=== PATIENT | male | born 1935 | race Caucasian/White ===

== ENCOUNTER 2016-11-19 11:46 | Inpatient (IN) | payer MEDICARE, BC ==
[2016-11-19 12:13] LABS: AUTOMATED BASOPHIL 0.9 % (0-2); AUTOMATED EOSINOPHIL 1.1 % (0-5); AUTOMATED LYMPH 18.6 % (17-44); AUTOMATED MONOCYTE 8.8 % (3-10); AUTOMATED NEUTROPHIL 70.6 % (45-76); MPV 7.8 fL (7.4-10.4)
[2016-11-19 12:33] LABS: PARTIAL THROMB. TIME 24.7 SEC (22-35)
[2016-11-19 12:34] LABS: BLOOD UREA NITROGEN 17 MG/DL (9-20); CALCIUM 8.7 MG/DL (8.4-10.2); CALCULATED OSMOLALITY 273 MOs/Kg (270-290); CHLORIDE 100 mEq/L (98-107); GLUCOSE 128 MG/DL (70-99); SODIUM LEVEL 140 mEq/L (137-146); TOTAL PROTEIN 7.4 G/DL (6.3-8.2)
[2016-11-19 12:56] LABS: CPK TOTAL WITH POSSIBLE MB 93 IU/L (55-170)
--- NOTE | 2016-11-19 13:08 | DIRPT ---
CLINICAL DATA: Acute onset left-sided facial droop EXAM: CT HEAD WITHOUT CONTRAST TECHNIQUE: Contiguous axial images were obtained from the base of the skull through the vertex without intravenous contrast. COMPARISON: None. FINDINGS: There is mild diffuse atrophy. There is no intracranial mass, hemorrhage, extra-axial fluid collection, or midline shift. There is a focal area of decreased attenuation at the baron - white junction of the right frontal -parietal junction, suspicious for recent/acute infarct in this area. Elsewhere, there is mild small vessel disease in the centra semiovale bilaterally. Bony calvarium appears intact. Mastoid air cells are clear. There is leftward deviation the nasal septum. There are no intraorbital lesions. IMPRESSION: Acute appearing infarct at the baron -white junction, located at the right frontal -parietal lobe junction, best seen on axial slices 21--24, series 2. Elsewhere there is mild atrophy with mild periventricular small vessel disease. No mass effect or hemorrhage. There is leftward deviation of the nasal septum. Electronically Signed By: Oracio De La Fuente III, M.D. On: 11/19/2016 13:06
--- NOTE | 2016-11-19 14:35 | DIRPT ---
CLINICAL DATA: Weakness, numbness LEFT side of face since this morning, swollen gland at LEFT eye EXAM: CHEST 2 VIEW COMPARISON: None FINDINGS: Light technique limits lateral view. Upper normal heart size. Atherosclerotic calcification aorta. Mediastinal contours and pulmonary vascularity normal. Lungs appear mildly hyperaerated with streaky atelectasis at RIGHT base. No definite acute infiltrate, pleural effusion, or pneumothorax. Bones demineralized. IMPRESSION: RIGHT basilar atelectasis with questionable underlying emphysematous changes. Electronically Signed By: Ramiro Tuttle M.D. On: 11/19/2016 14:32
--- NOTE | 2016-11-19 14:41 | EDPRACDOC ---
- Treatment Prior to ED Arrival Reported Medications/Treatment MAINTENANCE TECH Medications MAINTENANCE TECH (Medication/ PLAVIX [id number] Dose/Time) - General Information Chief Complaint: Neuro Symptoms/Deficits Stated Complaint: ? STROKE SYMPTOMS WOKE UP THIS AM Time Seen by Provider: 11/19/16 13:36 Mode of Arrival:: Car Home Medications: Home Medications Atorvastatin Calcium [Lipitor] 10 mg PO QHS 11/19/16 Clopidogrel Bisulfate [Plavix] 75 mg PO DAILY 11/19/16 Doxazosin Mesylate 8 mg PO DAILY 11/19/16 Finasteride [Proscar] 5 mg PO DAILY 11/19/16 Gabapentin 600 mg PO QHS 11/19/16 Glimepiride 2 mg PO DAILY 11/19/16 Hydrochlorothiazide 25 mg PO DAILY 11/19/16 Quinapril HCl [Accupril] 40 mg PO BID 11/19/16 Allergies/Adverse Reactions: Allergies Allergy/AdvReac Type Severity Reaction Status Date / Time No Known Allergies Allergy Verified 11/19/16 11:56 - History of Present Illness Exact Onset of Symptoms: Upon Awakening Date Symptoms Started: 11/19/16 Time Symptoms Started: 05:00 Symptoms Started: Reports: While asleep Symptoms: Reports: Facial droop (LEFT), Trouble swallowing Symptoms Description: Constant Weakness: Left: Face Relevant History of: Reports: CVA (WITH RESOLVED LEFT SIDED WEAKNESS.) ED Past Medical History - History Reviewed Yes Nurses notes reviewed and agree except as marked - Patient Medical History Neurological History: Reports: Cerebrovascular Accident Cardiac History: Reports: Hypertension, Hypercholesterolemia GI/ History: Reports: Gastroesophageal Reflux Musculoskeletal History: Reports: Arthritis Psychological History: Denies: Depression Systemic History: Denies: Cancer Surgical History: Reports: Appendectomy - Social Medical History Smoking Status: Former smoker Lives With: Spouse Lives In: Home EDM Review of Systems - Review of Systems ROS Negative Except as Marked: Yes All systems reviewed and were negative except as marked Respiratory: negative: Shortness of Breath Cardiovascular: negative: Chest Pain Gastrointestinal: negative: Nausea, Pain, Vomiting Neurological: Other (LEFT FACIAL DROOP SINCE AWAKENING THIS AM.) - Physical Exam Constitutional: Alert Oriented to: Time, Person, Place Last recorded Vital Signs: Last Vital Signs Temp 97.6 F 11/19/16 11:49 Pulse 74 11/19/16 13:46 Resp 18 11/19/16 13:46 BP 116/64 11/19/16 13:46 Pulse Ox 96 11/19/16 13:46 Oxygen Pulse Oxygen Saturation 96 O2 Device Room Air Oxygen Flow Rate Fraction of Inspired Oxygen ( FIO2) - HEENT Head: negative: Deformity, Laceration Eye Exam: negative: Conjunctival Injection, Pale Conjunctiva Oropharynx: negative: Membranes Dry Nose: negative: Congestion, Discharge Neck: negative: Limited ROM - Respiratory/Cardiovascular Respiratory: Normal - CTA. negative: Accessory Muscle Use, Diminished, Tachypnea Cardiovascular: negative: Bradycardia, Tachycardia, Irregular - GI Auscultation: Normal Palpation: Normal Tenderness: Non tender - Musculoskeletal Extremities: Pedal Pulse (PALPABLE), Radial Pulse (PALPABLE). negative: Calf Tenderness, Pedal Edema - Integumentary Skin: Warm, Dry. negative: Rash - Neurologic Memory Impaired: Normal Mood Description: Anxious, Appropriate Thought: Coherent Perception: Normal NIH Stroke Scale Initial Evaluation Level of Consciousness: Alert LOC- Question: Answers Both Correctly LOC Commands: Both Task Correctly Best Gaze: Normal Visual: No Visual Loss Facial Palsy: Partial Paralysis Motor Arm LEFT: No Drift Motor Arm RIGHT: No Drift Motor Leg LEFT: No Drift Motor Leg RIGHT: No Drift Limb Ataxia: Absent Sensory: Normal Best Language: No Aphasia Dysarthria: Normal Extinction and Inattention: No Abnormality (Neglect) Score: 2out of42 - Action Has patient received an Antithrombotic in the last 24hrs?: Yes Was an Antithrombotic given in the ED?: No Is patient a candidate for lytic therapy?: No - Results 11/19/16 11:58 11/19/16 11:58 WBC 8.1 xk/uL (3.8-10.8) 11/19/16 11:58 RBC 5.37 xM/uL (4.70-6.10) 11/19/16 11:58 Hgb 15.9 g/dL (14.0-18.0) 11/19/16 11:58 Hct 46.2 % (42-52) 11/19/16 11:58 MCV 86 fL (80-94) 11/19/16 11:58 MCH 29.6 pg (27-32) 11/19/16 11:58 MCHC 34.3 g/dl (33-36) 11/19/16 11:58 RDW 13.6 % (11.5-14.5) 11/19/16 11:58 Plt Count 168 xk/uL (130-400) 11/19/16 11:58 MPV 7.8 fL (7.4-10.4) 11/19/16 11:58 Neut % (Auto) 70.6 % (45-76) 11/19/16 11:58 Lymph % (Auto) 18.6 % (17-44) 11/19/16 11:58 Reynolds % (Auto) 8.8 % (3-10) 11/19/16 11:58 Eos % (Auto) 1.1 % (0-5) 11/19/16 11:58 Baso % (Auto) 0.9 % (0-2) 11/19/16 11:58 Absolute Neuts (auto) 5.67 xk/uL (1.7-8.2) 11/19/16 11:58 Absolute Lymphs (auto) 1.46 xk/uL (0.65-4.75) 11/19/16 11:58 PT 10.7 SEC (9.2-11.2) 11/19/16 11:58 INR 1.0 11/19/16 11:58 APTT 24.7 SEC (22-35) 11/19/16 11:58 Sodium 140 mEq/L (137-146) 11/19/16 11:58 Potassium 3.8 mEq/L (3.5-5.1) 11/19/16 11:58 Chloride 100 mEq/L (98-107) 11/19/16 11:58 Carbon Dioxide 29 mMOL/L (22-33) 11/19/16 11:58 Anion Gap 15 mEq/L (8-16) 11/19/16 11:58 BUN 17 MG/DL (9-20) 11/19/16 11:58 Creatinine 1.10 MG/DL (0.66-1.25) 11/19/16 11:58 Estimated GFR (MDRD) > 60 mL/min (>=60) 11/19/16 11:58 Glucose 128 MG/DL (70-99) H 11/19/16 11:58 Calculated Osmolality 273 MOs/Kg (270-290) 11/19/16 11:58 Calcium 8.7 MG/DL (8.4-10.2) 11/19/16 11:58 Total Bilirubin 0.6 MG/DL (0.2-1.3) 11/19/16 11:58 AST 39 IU/L (17-59) 11/19/16 11:58 ALT 44 IU/L (21-72) 11/19/16 11:58 Alkaline Phosphatase 95 IU/L (50-160) 11/19/16 11:58 Creatine Kinase 93 IU/L (55-170) 11/19/16 11:58 Troponin I < 0.01 ng/mL (<.04) 11/19/16 11:58 Total Protein 7.4 G/DL (6.3-8.2) 11/19/16 11:58 Albumin 4.0 G/DL (3.5-5.0) 11/19/16 11:58 Lab Results 11/19/16 11/19/16 11/19/16 11:58 11:58 11:58 WBC 8.1 RBC 5.37 Hgb 15.9 Hct 46.2 MCV 86 MCH 29.6 MCHC 34.3 RDW 13.6 Plt Count 168 MPV 7.8 Neut % (Auto) 70.6 Lymph % (Auto) 18.6 Reynolds % (Auto) 8.8 Eos % (Auto) 1.1 Baso % (Auto) 0.9 Absolute Neuts (auto) 5.67 Absolute Lymphs (auto) 1.46 PT 10.7 INR 1.0 APTT 24.7 Sodium 140 Potassium 3.8 Chloride 100 Carbon Dioxide 29 Anion Gap 15 BUN 17 Creatinine 1.10 Estimated GFR (MDRD) > 60 Glucose 128 H Calculated Osmolality 273 Calcium 8.7 Total Bilirubin 0.6 AST 39 ALT 44 Alkaline Phosphatase 95 Creatine Kinase 93 Troponin I < 0.01 Total Protein 7.4 Albumin 4.0 - EKG EKG #1 EKG Time: 11:57 -: Yes EKG interpreted by me Rate: bpm: 79 [place]: Normal Rhythm: NSR, PACs Block: None Hypertrophy: None ST: Normal - Departure Yes I personally saw and evaluated the patient. Disposition: Admit IP To This Hospital Condition: Stable Final Diagnosis: CVA (cerebral vascular accident) Decision to Admit Time: 15:30 Decision to admit date: 11/19/16 Decision to admit: from ED
[2016-11-19 15:34] LABS: CPK TOTAL WITH POSSIBLE MB 82 IU/L (55-170)
[2016-11-19] MEDS ORDERED: ACETAMINOPHEN 325 MG SUPP PR PRN (15:56)
[2016-11-19] MEDS ORDERED: GLUCOSE (ORAL GEL) 15 GM TUBE PO PRN (15:56)
[2016-11-19] MEDS ORDERED: ONDANSETRON HCL 4 MG/2 ML VIAL IV PRN (15:56)
[2016-11-19] MEDS ORDERED: OXYCODONE HCL 5 MG TABLET PO PRN (15:56)
[2016-11-19] MEDS ORDERED: BENZONATATE 100 MG PERLES PO PRN (15:56)
[2016-11-19] MEDS ORDERED: SENNA CONCENTRATE TAB PO PRN (15:56)
[2016-11-19] MEDS ORDERED: ACETAMINOPHEN 325 MG/TAB TABLET PO PRN (15:56)
[2016-11-19] MEDS ORDERED: PROMETHAZINE 25 MG/ML VIAL IV PRN (15:56)
[2016-11-19] MEDS ORDERED: Albuterol/Ipratropium Neb 3 ML NEB NEB PRN (15:56)
[2016-11-19] MEDS ORDERED: BISACODYL 10 MG SUPP PR PRN (15:56)
[2016-11-19] MEDS ORDERED: GLUCAGON 1 MG VIAL SQ PRN (15:56)
[2016-11-19] MEDS ORDERED: DEXTROSE 25 GM/50 ML PFS IV PRN (15:56)
[2016-11-19] MEDS ORDERED: TUSSIONEX 5 ML ORAL SYRINGE PO PRN (15:56)
--- NOTE | 2016-11-19 16:08 | HISTPHYS ---
- Chief Complaint Left facial weakness starting at 5:30 a.m. this morning with slurred speech - History of Present Illness Patient very pleasant 81-year-old white male who was brought in today at the insistence of his spouse with abrupt onset of slurred speech and left facial weakness around 5:30 a.m.. He subsequently went to [employer] and got a hair cut until his finally convinced him to come into the emergency room for further evaluation. He tells me he had a previous stroke affecting his left upper extremity 8 years ago near the time he was diagnosed with diabetes mellitus. 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 He states that since that time he has been told he cannot have an MRI due to the placement of the filter. Upon arrival here CT of the head showed evidence of an acute right frontoparietal stroke. - Medical History Cardiac History: Reports: Hypertension, Hypercholesterolemia GI/ History: Reports: Gastroesophageal Reflux Musculoskeletal History: Reports: Arthritis Systemic History: Denies: Cancer Neurological History: Reports: Cerebrovascular Accident Psychological History: Denies: Depression - Surgical History Reports: Appendectomy - Medictions/Allergies Allergies No Known Allergies Allergy (Verified 11/19/16 11:56) Current Medication List: Reviewed Home Medications Atorvastatin Calcium [Lipitor] 10 mg PO QHS 11/19/16 Clopidogrel Bisulfate [Plavix] 75 mg PO DAILY 11/19/16 Doxazosin Mesylate 8 mg PO DAILY 11/19/16 Finasteride [Proscar] 5 mg PO DAILY 11/19/16 Gabapentin 600 mg PO QHS 11/19/16 Glimepiride 2 mg PO DAILY 11/19/16 Hydrochlorothiazide 25 mg PO DAILY 11/19/16 Quinapril HCl [Accupril] 40 mg PO BID 11/19/16 - Family History Reports: Hypertension - Social History Travel Outside of [place] in the Last 3 Months?: No Lives: with Spouse Smoking Status: Former smoker Social History: Denies: Alcohol Use, Substance Use Disorder - Review of Systems Constitutional: No Symptoms Reported (No Fever, chills, wt loss/gain, diaphoresis,fatigue/malaise.) Eyes: Other (Left facial weakness with drooping left eyelid and flattening of left nasolabial fold) Ears: No Symptoms Reported (No ear pain or discharge) Nose: No Symptoms Reported (No nasal discharge/congestion or bleeding) Mouth: Other (Left facial weakness with drooping left eyelid and flattening of left nasolabial fold) Throat/Neck: No Symptoms Reported (No throat pain or swelling.No oropharyngeal lesions or erythema.) Respiratory: No Symptoms Reported (No cough, wheezing, or shortness of breath.) Cardiovascular: No Symptoms Reported (No chest pain or palpitations.) Gastrointestinal: No Symptoms Reported (No abdominal pain, nausea, vomiting, diarrhea, constipation, or bloody stool.) Genitourinary: No Symptoms Reported (No dysuria or hematuria.) Neurological: Other (Left facial weakness and 8 years ago previous stroke giving him transient left upper extremity weakness) Musculoskeletal:: No Symptoms Reported Integumentary: No Symptoms Reported (no rashes or lesions) Allergic/Immunologic: No Symptoms Reported (no rashes or lesions) Hematologic: No Symptoms Reported (No chronic anemia, bleeding, or easy bruising.), Other (Lymphatics- no lymph node swelling or pain.) Endocrine: Diabetes Psychiatric: No Symptoms Reported (Fully oriented, with normal and appropriate affect.) - Physical Exam Vital Signs: Initial Vitals Temperature 97.6 F 11/19/16 11:49 Pulse Rate 83 11/19/16 11:49 Respiratory Rate 20 11/19/16 11:49 Blood Pressure 140/70 11/19/16 11:49 Pulse Oxygen Saturation 95 11/19/16 11:49 Constitutional: No apparent distress, Alert (Awake, Fully oriented. Normal and appropriate affect. Well nourished.) Oriented to: Time, Person, Place - HEENT Head: Other (Left facial weakness with drooping left eyelid and flattening of left nasolabial fold) Eye: Other (Left facial weakness with drooping left eyelid and flattening of left nasolabial fold) Oropharynx: Normal (Pharynx: Moist without exudate,Gums-no swelling, No oropharyngeal lesions or erythema, Mucous membranes are dry.) ENT EAC: Other (Left facial weakness with drooping left eyelid and flattening of left nasolabial fold). negative: Blood, Foreign Body, Swelling TMJ: Normal Nose: No Symptoms Reported (septum midline, Nares patent, without discharge or bleeding.) Respiratory: Normal - CTA (Clear to auscultation bilaterally. No wheezing, rales , rhonchi. Chest wall movements are symmetric. No use of accessory muscles to breathe.) Cardiovascular: Normal (RRR , Normal S1, S2. No murmurs, rubs, or gallops. PMI non-displaced. Carotids: no carotid bruits. No bradycardia or tachycardia. DP pulses 2+ bilaterally.) - GI Auscultation: Normal (normal active sounds) Palpation: Normal (Soft,non distended,nontender. No hepatosplenomegaly.) Tenderness: Non tender (No rebound or guarding) Tejada's Sign: Negative - Musculoskeletal Back: Normal (Non-Tender). negative: Abrasion, Ecchymosis, Laceration Extremities: Normal (Normal tone, DP pulses 2+ bilaterally, No cyanosis or edema bilaterally, FROM bilaterally.) Spine: non-tender, normal alignment, limited range of motion - Integumentary Skin: Normal (Clean, dry, and intact. No rashes. No lesions.) Lymphatics: Normal (No cervical lymphadenopathy. No supraclavicular lymphadenopathy.) - Neurologic Memory Impaired: Normal Motor Function: Abnormal (Left facial weakness with drooping left eyelid and flattening of left nasolabial fold but lower extremities of equal strength approximately 4/5 flexion extension bilaterally) Cranial Nerve: Other (Left facial weakness with drooping left eyelid and flattening of left nasolabial fold and dysarthria) Cerebellar: Past-Pointing (Very mild past pointing left upper extremity). negative: Tremor Mood Description: Normal (Fully oriented. Normal and appropriate affect.) Thought: Coherent Perception: Normal (Normal and appropriate affect.) - Focused CV Perfusion Exam Vital Signs: Last Vital Signs Temp 97.6 F 11/19/16 11:49 Pulse 66 11/19/16 15:02 Resp 18 11/19/16 15:02 BP 125/71 11/19/16 15:02 Pulse Ox 95 11/19/16 15:02 - Lab Results 11/19/16 11:58 11/19/16 11:58 Laboratory Results - last 24 hr 11/19/16 11/19/16 11/19/16 11:58 11:58 11:58 WBC 8.1 RBC 5.37 Hgb 15.9 Hct 46.2 MCV 86 MCH 29.6 MCHC 34.3 RDW 13.6 Plt Count 168 MPV 7.8 Neut % (Auto) 70.6 Lymph % (Auto) 18.6 [place] % (Auto) 8.8 Eos % (Auto) 1.1 Baso % (Auto) 0.9 Absolute Neuts (auto) 5.67 Absolute Lymphs (auto) 1.46 PT 10.7 INR 1.0 APTT 24.7 Sodium 140 Potassium 3.8 Chloride 100 Carbon Dioxide 29 Anion Gap 15 BUN 17 Creatinine 1.10 Estimated GFR (MDRD) > 60 Glucose 128 H POC Capillary Glucose Calculated Osmolality 273 Calcium 8.7 Total Bilirubin 0.6 AST 39 ALT 44 Alkaline Phosphatase 95 Creatine Kinase 93 Troponin I < 0.01 Total Protein 7.4 Albumin 4.0 11/19/16 11/19/16 14:48 17:25 WBC RBC Hgb Hct MCV MCH MCHC RDW Plt Count MPV Neut % (Auto) Lymph % (Auto) [place] % (Auto) Eos % (Auto) Baso % (Auto) Absolute Neuts (auto) Absolute Lymphs (auto) PT INR APTT Sodium Potassium Chloride Carbon Dioxide Anion Gap BUN Creatinine Estimated GFR (MDRD) Glucose POC Capillary Glucose 116 H Calculated Osmolality Calcium Total Bilirubin AST ALT Alkaline Phosphatase Creatine Kinase 82 Troponin I < 0.01 Total Protein Albumin - Diagnostic Findings CT of the head shows the following: IMPRESSION: Acute appearing infarct at the baron -white junction, located at the right frontal -parietal lobe junction, best seen on axial slices 21--24, series 2. Elsewhere there is mild atrophy with mild periventricular small vessel disease. No mass effect or hemorrhage. There is leftward deviation of the nasal septum. - Assessment (1) CVA (cerebral vascular accident) I63.9 - CEREBRAL INFARCTION, UNSPECIFIED Acute Present on Admission: Yes Qualifiers: CVA mechanism: thrombosis Precerebral and cerebral artery: middle cerebral artery Laterality of affected vessel: right Qualified Code(s): I63.311 - Cerebral infarction due to thrombosis of right middle cerebral artery Patient taking Plavix Lipitor Cardura and concerned that of all these medications, the Cardura could be contributing to the neurologic event. According to the [place] study February 2000 Journal of the [employer], Doxazosin was associated with more stroke and cardiovascular disease events than chlorthalidone in high risk hypertension. For this reason I will discontinue the Cardura switching to Flomax more specific for urinary tissue for now and close observation blood pressure allowing it to go a little higher. May consider the use of beta wilbert in the future as the blood pressure goes up. Patient already taking aspirin and Plavix and I do not feel that Aggrenox would afford him any more benefit. Routine stroke studies ordered. (2) Diabetes mellitus type II, non insulin dependent E11.9 - TYPE 2 DIABETES MELLITUS WITHOUT COMPLICATIONS Chronic Present on Admission: Yes Sliding scale insulin therapy and previous medications ordered. Claims he was nauseous with the metformin. Glycohemoglobin 6.5 and urine microalbumin is pending at time of dictation. (3) Hypertension I10 - ESSENTIAL (PRIMARY) HYPERTENSION Chronic Present on Admission: Yes Qualifiers: Hypertension type: essential hypertension Qualified Code(s): I10 - Essential (primary) hypertension Allow the blood pressure to creep little higher post CVA. (4) Hypercholesterolemia E78.00 - PURE HYPERCHOLESTEROLEMIA, UNSPECIFIED Chronic Present on Admission: Yes Continue statin. Lipid panel pending. (5) BPH (benign prostatic hyperplasia) N40.0 - BENIGN PROSTATIC HYPERPLASIA WITHOUT LOWER URINRY TRACT SYMP Chronic Present on Admission: Yes Qualifiers: Prostatic enlargement morphology: unspecified morphology Lower urinary tract symptom presence: symptoms present Qualified Code(s): N40.1 - Benign prostatic hyperplasia with lower urinary tract symptoms Switch Cardura to Flomax which is more specific for urinary tissue. Case Care Discussed with: Patient, Nursing Staff, Resource Management Total Time: Critical care time spent 1 hour 22 minutes Critical Care: Yes Code: 291 (292)
[2016-11-19] MEDS: NS/KCl 20 mEq 1,000 ML IV SCH (17:19)
[2016-11-19] MEDS: REGULAR INSULIN 100 UNITS/ML - 3 ML VIAL SQ SCH (17:26)
[2016-11-19] MEDS: ENOXAPARIN 40 MG/0.4 ML PFS SQ SCH (19:06)
[2016-11-19] MEDS: ATORVASTATIN 10 MG TAB PO SCH (19:06)
[2016-11-19] MEDS: GABAPENTIN 300 MG CAP PO SCH (21:28)
[2016-11-19 22:55] LABS: LEUKOCYTES/URINE NEG (NEGATIVE); NITRITE/URINE NEG (NEGATIVE); RBC/URINE 0-2 (0-2); URINE OCCULT BLOOD NEG (NEG/TRACE); WBC/URINE 0-2 (0-2)
[2016-11-19] MEDS ORDERED: Vaccine Screening Complete SCH (23:00)
[2016-11-20 04:56] LABS: AUTOMATED BASOPHIL 0.6 % (0-2); AUTOMATED EOSINOPHIL 2.6 % (0-5); AUTOMATED LYMPH 27.7 % (17-44); AUTOMATED MONOCYTE 11.2 % (3-10); AUTOMATED NEUTROPHIL 57.9 % (45-76); MPV 8.7 fL (7.4-10.4)
[2016-11-20 04:57] VITALS: BMI 29.1
[2016-11-20 05:06] LABS: BLOOD UREA NITROGEN 17 MG/DL (9-20); CALCIUM 8.4 MG/DL (8.4-10.2); CALCULATED OSMOLALITY 267 MOs/Kg (270-290); CHLORIDE 101 mEq/L (98-107); GLUCOSE 77 MG/DL (70-99); LDL (calc.) 63.8 MG/DL (<100); SODIUM LEVEL 138 mEq/L (137-146); VLDL (calc.) 21.2 MG/DL (5-40)
[2016-11-20] MEDS: REGULAR INSULIN 100 UNITS/ML - 3 ML VIAL SQ SCH ×2 (06:24→18:49)
--- NOTE | 2016-11-20 08:36 | DIRPT ---
CLINICAL DATA: 81-year-old male with a history of left-sided facial droop. Cardiovascular risk factors include hypertension, stroke/TIA, diabetes. EXAM: BILATERAL CAROTID DUPLEX ULTRASOUND TECHNIQUE: Benjamin scale imaging, color Doppler and duplex ultrasound were performed of bilateral carotid and vertebral arteries in the neck. COMPARISON: No prior duplex FINDINGS: Criteria: Quantification of carotid stenosis is based on velocity parameters that correlate the residual internal carotid diameter with NASCET-based stenosis levels, using the diameter of the distal internal carotid lumen as the denominator for stenosis measurement. The following velocity measurements were obtained: RIGHT ICA: Systolic 296 cm/sec, Diastolic 51 cm/sec CCA: 134 cm/sec SYSTOLIC ICA/CCA RATIO: 2.2 ECA: 132 cm/sec LEFT ICA: Systolic 145 cm/sec, Diastolic 38 cm/sec CCA: 121 cm/sec SYSTOLIC ICA/CCA RATIO: 1.2 ECA: 330 cm/sec Right Brachial SBP: Not acquired Left Brachial SBP: Not acquired RIGHT CAROTID ARTERY: Atherosclerotic changes of the right common carotid artery. Intermediate waveform maintained. Heterogeneous and partially calcified plaque at the right carotid bifurcation. Intimal thickening. Low resistance waveform maintained in the right ICA. No significant tortuosity. RIGHT VERTEBRAL ARTERY: Antegrade flow with low resistance waveform. LEFT CAROTID ARTERY: Atherosclerotic changes of the left common carotid artery. Intermediate waveform maintained. Heterogeneous and partially calcified plaque of the left carotid bifurcation. Low resistance waveform of the left ICA. No significant tortuosity. LEFT VERTEBRAL ARTERY: Antegrade flow with low resistance waveform. IMPRESSION: Right: Heterogeneous plaque at the carotid bifurcation, with discordant results regarding degree of stenosis by established duplex criteria. Peak velocity suggests 70% - 99% stenosis, with the ICA/ CCA ratio suggesting a lesser degree of stenosis. If establishing a more accurate degree of stenosis is required, cerebral angiogram should be considered, or as a second best test, CTA. Left: Heterogeneous plaque at the carotid bifurcation, with discordant results regarding degree of stenosis by established duplex criteria. Peak velocity suggests 50%-69% stenosis, with the ICA/ CCA ratio suggesting a lesser degree of stenosis. If establishing a more accurate degree of stenosis is required, cerebral angiogram should be considered, or as a second best test, CTA. These results were called by telephone at the time of interpretation on 11/20/2016 at 8:[address] GERALDINE DE LA GARZA MD, who verbally acknowledged these results. Signed, Azael S. Abdi, DO [facility] Electronically Signed By: Azael Abdi D.O. On: 11/20/2016 08:33
[2016-11-20] MEDS ORDERED: QUINAPRIL HCL 40 MG TAB PO SCH (09:00)
--- NOTE | 2016-11-20 09:25 | GENMEDPROG ---
Chief Complaint: Left facial paralysis remains with deviation of tongue but speech is slightly clearer. Notes Reviewed: Yes Events from last night noted and discussed with Clinical Staff Current Medication List: Reviewed DVT Prophylaxis: Yes - Physical Examination Vital Signs and I&O: Last Vital Signs Temp 98.1 F 11/20/16 09:03 Pulse 66 11/20/16 09:03 Resp 18 11/20/16 09:03 BP 132/64 11/20/16 09:03 Pulse Ox 97 11/20/16 09:03 Oxygen Pulse Oxygen Saturation 97 O2 Device Room Air Oxygen Flow Rate Fraction of Inspired Oxygen ( FIO2) Intake & Output 11/17/16 11/18/16 11/19/16 11/20/16 23:59 23:59 23:59 23:59 Intake Total 170 1285 Output Total 1100 Balance 170 185 Patient's weight 96.026 kg 94.665 kg General: Alert, Oriented x3, No acute distress, Well appearing, Well nourished HEENT: Other (Left facial weakness) Neck: Non-tender, Full range of motion, Normal Trachea alignment, Normal inspection (No cervical lymphadenopathy. No supraclavicular lymphadenopathy.), No Masses palpable, Supple Lymphatics: Normal (No cervical lymphadenopathy. No supraclavicular lymphadenopathy.) Respiratory: Normal - CTA (Clear to auscultation bilaterally. No wheezing, rales , rhonchi. Chest wall movements are symmetric. No use of accessory muscles to breathe.) Cardiovascular: Regular rate and rhythm (No bradycardia or tachycardia), Normal S1, No Gallops,Rubs/Murmurs, Normal S2, Good Pedal Pulses (DP pulses 2+ bilaterally) GI: Normal bowel sounds (normal active sounds), Soft (non-distended), Non tender , No hepatospenomegaly, No masses Extremities/Musculoskeletal: Normal pulses (DP pulses 2+ bilaterally) Skin: Warm,Dry and Intact, No rashes, No significant lesion Lab/DI/Studies Reviewed: 11/20/16 04:00 11/20/16 04:00 Laboratory Results - last 24 hr 11/19/16 11/19/16 11/19/16 11:58 11:58 11:58 WBC 8.1 RBC 5.37 Hgb 15.9 Hct 46.2 MCV 86 MCH 29.6 MCHC 34.3 RDW 13.6 Plt Count 168 MPV 7.8 Neut % (Auto) 70.6 Lymph % (Auto) 18.6 [place] % (Auto) 8.8 Eos % (Auto) 1.1 Baso % (Auto) 0.9 Absolute Neuts (auto) 5.67 Absolute Lymphs (auto) 1.46 PT 10.7 INR 1.0 APTT 24.7 Sodium 140 Potassium 3.8 Chloride 100 Carbon Dioxide 29 Anion Gap 15 BUN 17 Creatinine 1.10 Estimated GFR (MDRD) > 60 Glucose 128 H POC Capillary Glucose Hemoglobin A1c Calculated Osmolality 273 Calcium 8.7 Total Bilirubin 0.6 AST 39 ALT 44 Alkaline Phosphatase 95 Creatine Kinase 93 Troponin I < 0.01 Total Protein 7.4 Albumin 4.0 Triglycerides Cholesterol LDL Cholesterol, Calc VLDL Cholesterol, Calc HDL Cholesterol Cholesterol/HDL Ratio TSH Urine Color Urine Clarity Urine pH Ur Specific Adger Urine Protein Urine Glucose (UA) Urine Ketones Urine Occult Blood Urine Nitrite Urine Bilirubin Urine Urobilinogen Ur Leukocyte Esterase Urine RBC Urine WBC Hyaline Casts Urine Mucus 11/19/16 11/19/16 11/19/16 11:58 11:58 14:48 WBC RBC Hgb Hct MCV MCH MCHC RDW Plt Count MPV Neut % (Auto) Lymph % (Auto) [place] % (Auto) Eos % (Auto) Baso % (Auto) Absolute Neuts (auto) Absolute Lymphs (auto) PT INR APTT Sodium Potassium Chloride Carbon Dioxide Anion Gap BUN Creatinine Estimated GFR (MDRD) Glucose POC Capillary Glucose Hemoglobin A1c 6.5 H Calculated Osmolality Calcium Total Bilirubin AST ALT Alkaline Phosphatase Creatine Kinase 82 Troponin I < 0.01 Total Protein Albumin Triglycerides Cholesterol LDL Cholesterol, Calc VLDL Cholesterol, Calc HDL Cholesterol Cholesterol/HDL Ratio TSH 1.78 Urine Color Urine Clarity Urine pH Ur Specific Adger Urine Protein Urine Glucose (UA) Urine Ketones Urine Occult Blood Urine Nitrite Urine Bilirubin Urine Urobilinogen Ur Leukocyte Esterase Urine RBC Urine WBC Hyaline Casts Urine Mucus 11/19/16 11/19/16 11/20/16 17:25 21:14 04:00 WBC RBC Hgb Hct MCV MCH MCHC RDW Plt Count MPV Neut % (Auto) Lymph % (Auto) [place] % (Auto) Eos % (Auto) Baso % (Auto) Absolute Neuts (auto) Absolute Lymphs (auto) PT INR APTT Sodium 138 Potassium 3.6 Chloride 101 Carbon Dioxide 28 Anion Gap 13 BUN 17 Creatinine 1.00 Estimated GFR (MDRD) > 60 Glucose 77 POC Capillary Glucose 116 H Hemoglobin A1c Calculated Osmolality 267 L Calcium 8.4 Total Bilirubin AST ALT Alkaline Phosphatase Creatine Kinase Troponin I Total Protein Albumin Triglycerides 106 Cholesterol 113 LDL Cholesterol, Calc 63.8 VLDL Cholesterol, Calc 21.2 HDL Cholesterol 28.0 L Cholesterol/HDL Ratio 4.0 TSH Urine Color Yellow Urine Clarity Clear Urine pH 6.0 Ur Specific Adger 1.015 Urine Protein Neg Urine Glucose (UA) Neg Urine Ketones Neg Urine Occult Blood Neg Urine Nitrite Neg Urine Bilirubin Neg Urine Urobilinogen <2.0 Ur Leukocyte Esterase Neg Urine RBC 0-2 Urine WBC 0-2 Hyaline Casts 0-2 Urine Mucus Sm amt 11/20/16 11/20/16 04:00 05:51 WBC 7.2 RBC 4.84 Hgb 14.4 Hct 41.6 L MCV 86 MCH 29.6 MCHC 34.5 RDW 13.4 Plt Count 149 MPV 8.7 Neut % (Auto) 57.9 Lymph % (Auto) 27.7 [place] % (Auto) 11.2 H Eos % (Auto) 2.6 Baso % (Auto) 0.6 Absolute Neuts (auto) 4.10 Absolute Lymphs (auto) 1.94 PT INR APTT Sodium Potassium Chloride Carbon Dioxide Anion Gap BUN Creatinine Estimated GFR (MDRD) Glucose POC Capillary Glucose 86 Hemoglobin A1c Calculated Osmolality Calcium Total Bilirubin AST ALT Alkaline Phosphatase Creatine Kinase Troponin I Total Protein Albumin Triglycerides Cholesterol LDL Cholesterol, Calc VLDL Cholesterol, Calc HDL Cholesterol Cholesterol/HDL Ratio TSH Urine Color Urine Clarity Urine pH Ur Specific Adger Urine Protein Urine Glucose (UA) Urine Ketones Urine Occult Blood Urine Nitrite Urine Bilirubin Urine Urobilinogen Ur Leukocyte Esterase Urine RBC Urine WBC Hyaline Casts Urine Mucus Carotid Doppler shows 99% right internal carotid artery stenosis. Discuss with Radiology and contacted Dr. Green at [facility] for arrangements transferring Wednesday morning for carotid angiogram. Will make NPO Wednesday night. - Assessment (1) Stenosis of right internal carotid artery with cerebral infarction Acute I63.231 - CEREB INFRC DUE TO UNSP OCCLS OR STENOS OF RIGHT CAROTID ART Comment/Plan: Subtotal right internal carotid artery stenosis as noted on carotid Doppler. Contacted interventional radiologist in [place] who indicated he could see patient early next week for angiogram and possible angioplasty. (2) Diabetes mellitus type II, non insulin dependent Chronic E11.9 - TYPE 2 DIABETES MELLITUS WITHOUT COMPLICATIONS Comment/Plan : Sliding scale insulin therapy and previous medications ordered. Claims he was nauseous with the metformin. Glycohemoglobin 6.5 and urine microalbumin is pending at time of dictation. (3) Hypertension Chronic I10 - ESSENTIAL (PRIMARY) HYPERTENSION Qualifiers: Hypertension type: essential hypertension Qualified Code(s): I10 - Essential (primary) hypertension Comment/Plan: Allow the blood pressure to creep little higher post CVA. (4) Hypercholesterolemia Chronic E78.00 - PURE HYPERCHOLESTEROLEMIA, UNSPECIFIED Comment/Plan: Continue statin. Lipid panel pending. (5) BPH (benign prostatic hyperplasia) Chronic N40.0 - BENIGN PROSTATIC HYPERPLASIA WITHOUT LOWER URINRY TRACT SYMP Qualifiers: Prostatic enlargement morphology: unspecified morphology Lower urinary tract symptom presence: symptoms present Qualified Code(s): N40.1 - Benign prostatic hyperplasia with lower urinary tract symptoms Comment/Plan: Switch Cardura to Flomax which is more specific for urinary tissue. Additional Notes: Spent 53 minutes examining patient discussing potential angiogram next week and need for follow-up with interventional radiology and the presence of family and patient. Case Care Discussed with: Patient, Consultants (Interventional radiologist discussion), Family, Nursing Staff, Resource Management Education/Counseling Given To: Patient, Family Member Education/Counseling Given Regarding: Diagnosis, Treatment Total Time: 53 minutes Critical Care: No Code: 86456 (12+)
[2016-11-20] MEDS: FINASTERIDE 5 MG TAB PO SCH (09:32)
[2016-11-20] MEDS: CLOPIDOGREL 75 MG TAB PO SCH (09:32)
[2016-11-20] MEDS: TAMSULOSIN HCL 0.4 MG CAP PO SCH (09:33)
[2016-11-20] MEDS: GLIMEPIRIDE 2 MG TAB PO SCH (09:33)
[2016-11-20] MEDS: HYDROCHLOROTHIAZIDE 25 MG TAB PO SCH (09:33)
[2016-11-20] MEDS: QUINAPRIL HCL 20 MG TAB PO SCH ×2 (10:48→22:37)
[2016-11-20 11:44] VITALS: TEMP 98.1
[2016-11-20] MEDS: NS/KCl 20 mEq 1,000 ML IV SCH (12:56)
--- NOTE | 2016-11-20 16:20 | CAPUECHO ---
INDICATION: ISCHEMIC STROKE HEIGHT: 180.3 cm (5 ft 11.0 in) WEIGHT: 95.3 kg (210.0 lbs) BP: 136/70 BSA: 2.857855 m MEASUREMENTS 2D RVIDd: 3.9 cm LVOT Diam: 2.1 cm LA Diam: 4.2 cm EF Biplane: 67.36 % LAESV MOD A4C: 99.7 ml LAESV MOD A2C: 88.6 ml LAESV Index (A-L): 47.84 ml/m M-MODE IVSd: 1.0 cm LVIDd: 4.6 cm LVPWd: 1.0 cm LVIDs: 3.3 cm EF(Teich): 57 % Ao Diam: 3.5 cm DOPPLER MV E Farzad: 0.72 m/s MV A Farzad: 1.38 m/s MV PHT: 88.88 ms MVA By PHT: 2.48 cm LVOT Vmax: 1.00 m/s AV Vmax: 1.72 m/s VIOLETA Vmax, Pt: 2.10 cm TR Vmax: 2.92 m/s TR maxP mmHg RVSP: 44.21 mmHg FINDINGS ------- Procedure:2D images, m-mode, color and spectral Doppler were obtained and reviewed. ECG rhythm:Sinus rhythm. Study quality:This was a technically adequate study. Left Ventricle:The left ventricular size is normal. Left ventricular wall thickness is normal. O verall left ventricular systolic function is normal with, an EF between 60 - 65 %. The diastolic f illing pattern indicates impaired relaxation. Right Ventricle:The right ventricle is moderately enlarged. The right ventricular systolic functio n is normal. Left Atrium:Left atrium is moderately dilated by volume. Right Atrium:The right atrium is normal in size and function. Aortic Valve:The aortic valve is trileaflet, and appears structurally normal. No aortic stenosis or regurgitation. There is mild aortic valve sclerosis. Mitral Valve:Normal appearing mitral valve. No mitral regurgitation. Tricuspid Valve:The tricuspid valve appears structurally normal. Mild tricuspid regurgitation pres ent. Pulmonic Valve:The pulmonic valve is normal. There is no pulmonic regurgitation present. Aorta:The aortic root, ascending aorta and aortic arch appear normal. IVC:Normal inferior vena cava with normal inspiratory collapse. Pericardium:There is no pericardial effusion. CONCLUSIONS 1. The left ventricular size is normal. 2. Overall left ventricular systolic function is normal with, an EF between 60 - 65 %. 3. The diastolic filling pattern indicates impaired relaxation. 4. The right ventricle is moderately enlarged. 5. Left atrium is moderately dilated by volume. Electronically Signed By: Mert Salguero MD -- Electronically Signed On: 16:14:12
[2016-11-20] MEDS: ENOXAPARIN 40 MG/0.4 ML PFS SQ SCH (18:42)
[2016-11-20] MEDS: ATORVASTATIN 10 MG TAB PO SCH (18:42)
[2016-11-20] MEDS ORDERED: ATORVASTATIN 10 MG TAB PO SCH (21:00)
[2016-11-20] MEDS ORDERED: Non-Formulary Medication ITEM (Gabapentin [Gabapentin] 600 MG) PO SCH (21:00)
[2016-11-20] MEDS: GABAPENTIN 300 MG CAP PO SCH (22:07)
[2016-11-21 05:32] VITALS: TEMP 98
[2016-11-21] MEDS: REGULAR INSULIN 100 UNITS/ML - 3 ML VIAL SQ SCH (06:07)
--- NOTE | 2016-11-21 06:45 | PCM.DCS92 ---
- Final/Secondary Discharge Diagnosis (1) Stenosis of right internal carotid artery with cerebral infarction Acute I63.231 - CEREB INFRC DUE TO UNSP OCCLS OR STENOS OF RIGHT CAROTID ART Present on Admission: Yes Comment: Subtotal right internal carotid artery stenosis as noted on carotid Doppler. Contacted interventional radiologist in [place] who indicated he could see patient early next week for angiogram and possible angioplasty. (2) Diabetes mellitus type II, non insulin dependent Chronic E11.9 - TYPE 2 DIABETES MELLITUS WITHOUT COMPLICATIONS Present on Admission: Yes Comment: Sliding scale insulin therapy and previous medications ordered. Claims he was nauseous with the metformin. Glycohemoglobin 6.5 and urine microalbumin is pending at time of dictation. (3) Hypertension Chronic I10 - ESSENTIAL (PRIMARY) HYPERTENSION Present on Admission: Yes essential hypertension I10 - Essential (primary) hypertension Comment: Allow the blood pressure to creep little higher post CVA. (4) Hypercholesterolemia Chronic E78.00 - PURE HYPERCHOLESTEROLEMIA, UNSPECIFIED Present on Admission: Yes Comment: Continue statin. Lipid panel pending. (5) BPH (benign prostatic hyperplasia) Chronic N40.0 - BENIGN PROSTATIC HYPERPLASIA WITHOUT LOWER URINRY TRACT SYMP Present on Admission: Yes unspecified morphology symptoms present N40.1 - Benign prostatic hyperplasia with lower urinary tract symptoms Comment: Switch Cardura to Flomax which is more specific for urinary tissue. Discharge Disposition: Discharge w/ Home Health Discharge Condition: Stable Cognitive Discharge Status: Unimpaired Fuctional Discharge Status: Independent Physician Follow up/Referrals: Mary Saeed DO [Primary Care Provider] - Two Weeks Sav Green MD [Staff Physician] - 11/25/16 New Prescriptions: Aspirin [Children's Aspirin] 81 mg PO QAM #30 tab.chew Gentamicin [Garamycin, Genoptic] 3.5 gm OP TID #1 tube Tamsulosin HCl [Flomax] 0.4 mg PO DAILY #30 capsule Discharge Home Medication List Atorvastatin Calcium [Lipitor] 10 mg PO QHS 11/19/16 [History Confirmed Last Taken 11/20/16 18:42] Clopidogrel Bisulfate [Plavix] 75 mg PO DAILY 11/19/16 [History Confirmed Last Taken 11/21/16 08:04] Finasteride [Proscar] 5 mg PO DAILY 11/19/16 [History Confirmed 11/21/16 Last Taken 11/21/16 08:04] Gabapentin 600 mg PO QHS 11/19/16 [History Confirmed 11/21/16 Last Taken 22:07] Glimepiride 2 mg PO DAILY 11/19/16 [History Confirmed 11/21/16 Last Taken 08:03] Hydrochlorothiazide 25 mg PO DAILY 11/19/16 [History Confirmed 11/21/16 Last Taken 11/21/16 08:04] Quinapril HCl [Accupril] 40 mg PO BID 11/19/16 [History Confirmed 11/21/16 Last Taken 11/21/16 08:04] Aspirin [Children's Aspirin] 81 mg PO QAM #30 tab.chew 11/21/16 [Rx Last Taken 11/21/16 08:03] Gentamicin [Garamycin, Genoptic] 3.5 gm OP TID #1 tube 11/21/16 [Rx Last Taken Unknown] Tamsulosin HCl [Flomax] 0.4 mg PO DAILY #30 capsule 11/21/16 [Rx Last Taken 08:04] 11/20/16 04:00 11/20/16 04:00 Laboratory Results - last 24 hr 11/19/16 11/20/16 11/21/16 11:58 18:47 05:24 POC Capillary Glucose 202 H 90 RPR Nonreactive O2 Device: Room Air Diet at Discharge: As Tolerated, Cardiac, Diabetic, 1800 Calorie Activity: As Tolerated Discontinue use of:: Alcohol, All Types of Tobacco - DC Summary Notes HPI/Notes: Patient very pleasant 81-year-old white male who was brought in today at the insistence of his spouse with abrupt onset of slurred speech and left facial weakness around 5:30 a.m.. He subsequently went to [employer] and got a hair cut until his finally convinced him to come into the emergency room for further evaluation. He tells me he had a previous stroke affecting his left upper extremity 8 years ago near the time he was diagnosed with diabetes mellitus. 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 He states that since that time he has been told he cannot have an MRI due to the placement of the filter. Upon arrival here CT of the head showed evidence of an acute right frontoparietal stroke. Hospital Course Note:: Discharge summary on patient named ELISABETH MORA admitted to [facility] on 11/19/16 by Mitch Heath MD. Date of discharge is 2016. He was admitted with a right frontoparietal stroke noted on CT of brain and was unable to have MRI due to previous IVC filter placed in the when he had a fall from a deer stand subsequent pulmonary emboli. He also mentioned that he had a previous right-sided stroke with left upper extremity weakness years ago which had resolved. His main neurologic deficit was left facial weakness and dysarthria. Carotid Doppler yesterday showed subtotal occlusion of the right internal carotid artery. I contacted neuro interventional radiology and made arrangements for him to be seen early this next week for possible angiogram and subsequent angioplasty. Feeling better today he is ready go home. cc: DR. MARILEE GREEN Total Time: 41 min Code: 25873 (>30min.) - Physical Exam Vital Signs: Last Vital Signs Temp 98 F 11/21/16 05:31 Pulse 67 11/21/16 05:31 Resp 20 11/21/16 05:31 BP 168/78 11/21/16 05:31 Pulse Ox 97 11/21/16 05:31 Oxygen Pulse Oxygen Saturation 97 O2 Device Room Air Oxygen Flow Rate Fraction of Inspired Oxygen ( FIO2) Constitutional: No apparent distress, Alert (Awake, Fully oriented. Normal and appropriate affect. Well nourished.) Oriented to: Time, Person, Place - HEENT Head: Other (Left facial weakness with drooping left eyelid and flattening of left nasolabial fold) Eye: Other (Left facial weakness with drooping left eyelid and flattening of left nasolabial fold RED CONJ HX OINTMENT) Oropharynx: Normal (Pharynx: Moist without exudate,Gums-no swelling, No oropharyngeal lesions or erythema, Mucous membranes are dry.) ENT EAC: Other (Left facial weakness with drooping left eyelid and flattening of left nasolabial fold). negative: Blood, Foreign Body, Swelling TMJ: Normal Nose: No Symptoms Reported (septum midline, Nares patent, without discharge or bleeding.) - Respiratory/Cardiovascular Respiratory: Normal - CTA (Clear to auscultation bilaterally. No wheezing, rales , rhonchi. Chest wall movements are symmetric. No use of accessory muscles to breathe.) Cardiovascular: Normal (RRR , Normal S1, S2. No murmurs, rubs, or gallops. PMI non-displaced. Carotids: no carotid bruits. No bradycardia or tachycardia. DP pulses 2+ bilaterally.) - GI Auscultation: Normal (normal active sounds) Palpation: Normal (Soft,non distended,nontender. No hepatosplenomegaly.) Tenderness: Non tender (No rebound or guarding) Tejada's Sign: Negative - Musculoskeletal Back: Normal (Non-Tender). negative: Abrasion, Ecchymosis, Laceration Extremities: Normal (Normal tone, DP pulses 2+ bilaterally, No cyanosis or edema bilaterally, FROM bilaterally.) - Integumentary Skin: Normal (Warm dry no rashes) Lymphatics: Normal (No cervical lymphadenopathy. No supraclavicular lymphadenopathy.) - Neurologic Memory Impaired: Normal Motor Function: Normal (Motor 5/5 throughout.Normal tone, No cyanosis or edema , FROM) Cranial Nerve: 7 (Left facial weakness) Cerebellar: Past-Pointing (Very mild past pointing left upper extremity). negative: Tremor Mood Description: Normal (Fully oriented. Normal and appropriate affect.) Thought: Coherent Perception: Normal (Normal and appropriate affect.)
[2016-11-21 08:03] VITALS: BP 172/79; PULSE 66
[2016-11-21] MEDS: GLIMEPIRIDE 2 MG TAB PO SCH (08:03)
[2016-11-21] MEDS: HYDROCHLOROTHIAZIDE 25 MG TAB PO SCH (08:04)
[2016-11-21] MEDS: CLOPIDOGREL 75 MG TAB PO SCH (08:04)
[2016-11-21] MEDS: QUINAPRIL HCL 20 MG TAB PO SCH (08:04)
[2016-11-21] MEDS: FINASTERIDE 5 MG TAB PO SCH (08:04)
[2016-11-21] MEDS: TAMSULOSIN HCL 0.4 MG CAP PO SCH (08:04)
[2016-11-21] MEDS: NS/KCl 20 mEq 1,000 ML IV SCH (09:00)
== END 2016-11-21 11:58 | disposition home or self-care (01) | DRG 66 ==
LOC: ED 11:46 → PCU 16:10 → MPS3 11-21 02:06
PROVIDERS: ADMIT Internal Medicine; ATTEND Internal Medicine
DX: I63.311 Cerebral infarction due to thrombosis of right middle cerebral artery (principal); E11.9 Type 2 diabetes mellitus without complications; I10 Essential (primary) hypertension; I65.21 Occlusion and stenosis of right carotid artery; E78.00 Pure hypercholesterolemia, unspecified; N40.1 Benign prostatic hyperplasia with lower urinary tract symptoms; K21.9 Gastro-esophageal reflux disease without esophagitis; Z79.02 Long term (current) use of antithrombotics/antiplatelets; Z79.82 Long term (current) use of aspirin; Z79.899 Other long term (current) drug therapy; Z87.891 Personal history of nicotine dependence
CPT/HCPCS: 36415; 70450; 71020; 80048; 80053; 80061; 81001; 82043; 82550; 82962; 83036; 83090; 84443; 84484; 85025; 85610; 85730; 86592; 87086; 93005; 93306; 93880; 96372; 97161; 97165; 99284; G0237; J1650; J3490; J7040